=== PATIENT | male | born 1955 | race Caucasian/White ===

== ENCOUNTER → 2017-11-22 | Outpatient (CLI) | payer BC ==
[~2017-11-22] MED LIST: DULO60CA PO; GABA600T PO; LORA1TAB12 PO; OMEP20CA74 PO; OXYC10TA44 PO; TRAZ100T2 PO
[2017-11-22 07:39] LABS: Basophils # (auto) 0.1 uL; Basophils % (auto) 2.1 % (0.0-2.0); Eosinophils # (auto) 0.2 uL; Eosinophils % (auto) 4.1 % (0.0-7.0); Hematocrit 40.7 % (41.0-53.0); Hemoglobin 13.2 g/dL (13.5-17.5); Lymphocytes # (auto) 2.7 uL; Lymphocytes % (auto) 48.4 % (10.0-50.0); Mean Corpuscular Hemoglobin 30.9 pg (28.0-32.0); Mean Corpuscular Hgb Conc. 32.5 g/dL (32.0-36.0); Mean Corpuscular Volume 95.3 fL (80.0-100.0); Monocytes # (auto) 0.3 uL; Monocytes % (auto) 5.1 % (0.0-12.0); Neutrophils # (auto) 2.3 uL; Neutrophils % (auto) 40.3 % (37.0-80.0); Platelet Count (auto) 237 10^3/uL (140-450); Red Blood Cells 4.27 10^6/uL (4.5-5.90); Red Cell Distribution Width 14.9 % (11.8-14.3); White Blood Cell 5.6 10^3/uL (4.4-10.8)
[2017-11-22 07:42] LABS: Urine Bacteria NONE SEEN /hpf (None Seen); Urine Blood Negative /uL (Negative); Urine Specific Gravity 1.023 (1.001-1.035); Urine WBC 1 /hpf (0 - 3)
[2017-11-22 07:59] LABS: Albumin 3.4 g/dL (3.4-5.0); Bilirubin, Total 0.3 mg/dL (0.2-1.0); Calcium 7.8 mg/dL (8.5-10.1); Potassium 4.3 mmol/L (3.5-5.1); Total Protein 6.9 g/dL (6.4-8.2)
[2017-11-22 11:02] LABS: Prostate Specific Antigen 0.76 ng/mL (0.0-4.0)
== END | disposition home or self-care (01) ==
LOC: LAB 07:04
PROVIDERS: ATTEND Family Medicine
DX: K21.9 Gastro-esophageal reflux disease without esophagitis (principal); F51.01 Primary insomnia; F41.8 Other specified anxiety disorders; M48.061 Spinal stenosis, lumbar region without neurogenic claudication; Z89.511 Acquired absence of right leg below knee; Z98.890 Other specified postprocedural states
CPT/HCPCS: 36415; 80053; 80061; 81001; 82306; 82607; 83036; 84153; 84443; 85025

== ENCOUNTER → 2018-12-29 | Outpatient (CLI) | payer BC ==
[2018-12-29 11:06] LABS: Basophils # (auto) 0.1 uL; Basophils % (auto) 0.8 % (0.0-2.0); Eosinophils # (auto) 0.1 uL; Eosinophils % (auto) 1.4 % (0.0-7.0); Hematocrit 35.5 % (41.0-53.0); Hemoglobin 11.5 g/dL (13.5-17.5); Lymphocytes # (auto) 1.3 uL; Lymphocytes % (auto) 15.6 % (10.0-50.0); Mean Corpuscular Hemoglobin 29.4 pg (28.0-32.0); Mean Corpuscular Hgb Conc. 32.3 g/dL (32.0-36.0); Mean Corpuscular Volume 90.9 fL (80.0-100.0); Monocytes # (auto) 0.6 uL; Monocytes % (auto) 7.5 % (0.0-12.0); Neutrophils # (auto) 6.3 uL; Neutrophils % (auto) 74.7 % (37.0-80.0); Platelet Count (auto) 200 10^3/uL (140-450); Red Cell Distribution Width 13.8 % (11.8-14.3); White Blood Cell 8.4 10^3/uL (4.4-10.8)
[2018-12-29 11:08] LABS: Urine Bacteria NONE SEEN /hpf (None Seen); Urine Blood Negative /uL (Negative); Urine Specific Gravity 1.014 (1.001-1.035); Urine WBC <1 /hpf (0 - 3)
[2018-12-29 13:07] LABS: Potassium 4.6 mmol/L (3.5-5.1)
[2018-12-29 13:37] LABS: Albumin 3.3 g/dL (3.4-5.0); BUN/Creatinine Ratio 12.9; Bilirubin, Total 0.4 mg/dL (0.2-1.0); Calcium 7.3 mg/dL (8.5-10.1); Total Protein 6.8 g/dL (6.4-8.2)
== END | disposition home or self-care (01) ==
LOC: LAB 10:30
PROVIDERS: ATTEND Family Medicine
DX: K21.9 Gastro-esophageal reflux disease without esophagitis (principal); F51.5 Nightmare disorder; M54.9 Dorsalgia, unspecified
CPT/HCPCS: 36415; 80053; 80061; 81001; 82607; 83036; 84443; 85025

== ENCOUNTER 2019-04-08 09:00 | Emergency (ER) | payer BC ==
[~2019-04-08] VITALS: Ht 190.5 cm; Wt 105.7 kg
--- NOTE | 2019-04-08 11:54 | NUR ---
PICC line placement Patient educated on need for PICC line placement. All risks and benefits explained and all questions and concerns addressed prior to procedure. Noted past medical history and allergies with no contraindications. INR and Plt counts within acceptable range. 4fr PICC line inserted via RIGHT BRACHIAL vein using [employer] US and Tip Location System. Sterile technique with maximum barrier precautions utilized. Blood return obtained from SINGLE lumen and flushed easily with NS using proper technique. PICC secured with Stat-lock; biodisc and occlusive dressing applied. Stat portable chest x-ray obtained for PICC tip placement. *Baseline Arm Circumference 28CM. PICC lot #[id number] INTERNAL LENGTH 45CM EXTERNAL LENGTH 0CM.
[2019-04-08] MEDS ORDERED: LIDOCAINE 1% (LOCAL ANESTH.) PF 5ml SDV ID ONE (12:00)
[2019-04-08 12:50] VITALS: BP 156/105
[2019-04-08] MEDS ORDERED: SODIUM CHLOR 0.9% PF (SALINE LOCK) 10ML VIAL/SYR IV SCH (22:00)
== END 2019-04-08 13:19 | disposition home or self-care (01) ==
LOC: ER 09:04
DX: M86.8X7 Other osteomyelitis, ankle and foot (principal); E11.9 Type 2 diabetes mellitus without complications; Z89.512 Acquired absence of left leg below knee; Z88.1 Allergy status to other antibiotic agents
CPT/HCPCS: 36569; 71045; 99284; C1751; J7050

== ENCOUNTER 2020-05-04 18:00 | Emergency (ER) | payer BC, MEDICARE, OTHER ==
[~2020-05-04] VITALS: Ht 190.5 cm; Wt 102.1 kg
[~2020-05-04 18:00] MED LIST changes: -GABA600T PO; +GABA800T97 PO; -TRAZ100T2 PO; +TRAZ100T3 PO
[2020-05-04 19:46] LABS: Basophils # (auto) 0 10 ^3/uL (0-0.2); Basophils % (auto) 0.2 % (0.0-2.0); Eosinophils # (auto) 0 10 ^3/uL (0-0.8); Hematocrit 45.5 % (41.0-53.0); Hemoglobin 14.4 g/dL (13.5-17.5); Lymphocytes # (auto) 0.5 10 ^3/uL (0.4-5.4); Lymphocytes % (auto) 5.1 % (10.0-50.0); Mean Corpuscular Hgb Conc. 31.5 g/dL (32.0-36.0); Monocytes # (auto) 0.4 10 ^3/uL (0-1.3); Monocytes % (auto) 3.9 % (0.0-12.0); Neutrophils # (auto) 9.2 10 ^3/uL (1.6-8.6); Neutrophils % (auto) 90.8 % (37.0-80.0); Platelet Count (auto) 318 10^3/uL (140-450); Red Blood Cells 4.79 10^6/uL (4.5-5.90); Red Cell Distribution Width 15.6 % (11.8-14.3); White Blood Cell 10.1 10^3/uL (4.4-10.8)
[2020-05-04 20:06] LABS: Calcium 8.6 mg/dL (8.5-10.1); Potassium 3.7 mmol/L (3.5-5.1)
[2020-05-04 20:12] LABS: Bilirubin, Total 0.5 mg/dL (0.2-1.0)
[2020-05-04 20:37] LABS: Lactic Acid w/Reflex 2.7 mmol/L (0.4-2.0)
[2020-05-04] MEDS ORDERED: ONDANSETRON HCL 4 MG/2 ML VIAL IV ONE (21:00)
[2020-05-04] MEDS ORDERED: PIPERACILLIN-TAZOB 3.375GM 100 ML IV ONE (21:00)
[2020-05-04] MEDS ORDERED: MORPHINE SULFATE 4 MG/ML SYR/VIAL IV ONE (21:00)
[2020-05-04] MEDS ORDERED: SODIUM CHLORIDE 0.9% 3,050 ML IV ONE (21:15)
[2020-05-05] MEDS ORDERED: ONDANSETRON HCL 4 MG/2 ML VIAL IV ONE (01:00)
[2020-05-05] MEDS ORDERED: MORPHINE SULFATE 4 MG/ML SYR/VIAL IV ONE ×2 (01:00→03:30)
[2020-05-05 03:20] VITALS: BP 124/79
[2020-05-05] MEDS ORDERED: MORPHINE SULFATE 4 MG/ML SYR/VIAL ONE (03:26)
== END 2020-05-05 03:30 | disposition short-term general hospital (02) ==
LOC: ER 18:00 → EDBD 18:00 → EDUNIT# 18:00 → ER 05-05 03:30
DX: K80.10 Calculus of gallbladder with chronic cholecystitis without obstruction (principal); M25.512 Pain in left shoulder; G89.29 Other chronic pain; K63.1 Perforation of intestine (nontraumatic); Z98.84 Bariatric surgery status; I10 Essential (primary) hypertension
CPT/HCPCS: 36415; 73200; 74176; 76705; 80053; 82150; 83605; 83690; 85025; 87040; 93005; 96365; 96366; 96375; 96376; 99284; J2270; J2405; J2543; J7030

== ENCOUNTER 2021-06-22 20:16 | Emergency (ER) | payer OTHER ==
[~2021-06-22] VITALS: Ht 190.5 cm; Wt 96.2 kg
[~2021-06-22 20:16] MED LIST changes: -LORA1TAB12 PO; +LORA1TAB23 PO
[2021-06-22 22:19] LABS: Basophils # (auto) 0.1 10 ^3/uL (0-0.2); Basophils % (auto) 0.7 % (0.0-2.0); Eosinophils # (auto) 0.1 10 ^3/uL (0-0.8); Eosinophils % (auto) 1.6 % (0.0-7.0); Hematocrit 33.3 % (41.0-53.0); Hemoglobin 10.8 g/dL (13.5-17.5); Lymphocytes # (auto) 1.2 10 ^3/uL (0.4-5.4); Lymphocytes % (auto) 14.6 % (10.0-50.0); Mean Corpuscular Hgb Conc. 32.4 g/dL (32.0-36.0); Mean Corpuscular Volume 92.5 fL (80.0-100.0); Monocytes # (auto) 0.7 10 ^3/uL (0-1.3); Monocytes % (auto) 8.4 % (0.0-12.0); Neutrophils # (auto) 5.9 10 ^3/uL (1.6-8.6); Neutrophils % (auto) 74.7 % (37.0-80.0); Red Blood Cells 3.61 10^6/uL (4.5-5.90); Red Cell Distribution Width 16.4 % (11.8-14.3); White Blood Cell 7.9 10^3/uL (4.4-10.8)
[2021-06-22 22:38] LABS: Albumin 2.5 g/dL (3.4-5.0); BUN/Creatinine Ratio 18.9; Calcium 7.8 mg/dL (8.5-10.1); Potassium 4.4 mmol/L (3.5-5.1)
[2021-06-22 22:40] LABS: Bilirubin, Total 0.3 mg/dL (0.2-1.0); Total Protein 6.5 g/dL (6.4-8.2)
[2021-06-23 02:29] LABS: INR 0.97 (0.9-1.15)
[2021-06-23 02:35] LABS: Magnesium 2.4 mg/dL (1.6-2.6)
[2021-06-23 02:44] LABS: CRP High Sensitivity 10.7 mg/dL (< 0.3)
[2021-06-23] MEDS ORDERED: NAPROXEN 500 MG TAB PO ONE (04:15)
[2021-06-23] MEDS ORDERED: GABAPENTIN 400 MG CAP PO ONE (04:15)
[2021-06-23] MEDS ORDERED: ACET-1304 PO (04:38)
[2021-06-23] MEDS ORDERED: DULO1CAP5 PO (04:38)
[2021-06-23] MEDS ORDERED: NAP500T PO (04:38)
[2021-06-23] MEDS ORDERED: PIPERACILLIN-TAZO 4.5GM 100 ML IV ONE (05:00)
[2021-06-23] MEDS ORDERED: ACETAMINOPHEN 500 MG TAB PO ONE ×2 (06:30)
[2021-06-23 09:37] VITALS: BP 147/94
[2021-06-23] MEDS ORDERED: LINEZOLID 600MG/300ML 300 ML IV SCH (10:00)
== END 2021-06-23 10:11 | disposition home or self-care (01) ==
LOC: ER 20:24
DX: L03.115 Cellulitis of right lower limb (principal); T87.43 Infection of amputation stump, right lower extremity
CPT/HCPCS: 36415; 73700; 80053; 80329; 83605; 83735; 85025; 85610; 85652; 86141; 87205; 96365; 96366; 96368; 99284; J2020; J2543

== ENCOUNTER 2021-08-25 15:58 | Emergency (ER) | payer OTHER ==
[~2021-08-25] VITALS: Ht 190.5 cm; Wt 91.6 kg
[~2021-08-25 15:58] MED LIST changes: +ACET-1304 PO; +DULO1CAP5 PO; +NAP500T PO
[2021-08-25] MEDS ORDERED: PIPERACILLIN-TAZOB 3.375GM 100 ML IV ONE (17:00)
[2021-08-25] MEDS ORDERED: SODIUM CHLORIDE 0.9% 1,000 ML IV ONE ×2 (17:00)
[2021-08-25 17:27] LABS: Hematocrit 34.4 % (41.0-53.0); Mean Corpuscular Hemoglobin 28.7 pg (28.0-32.0); Mean Corpuscular Hgb Conc. 32.1 g/dL (32.0-36.0); Mean Corpuscular Volume 89.3 fL (80.0-100.0); Red Blood Cells 3.85 10^6/uL (4.5-5.90); Red Cell Distribution Width 17.3 % (11.8-14.3)
[2021-08-25 17:28] LABS: Basophils % (manual) 0 (0.0-2.0); Blast Cells 0; Eosinophils % (manual) 0 (0-7); Metamyelocytes % 0; Myelocytes % 0; Promyelocytes % 0; Reactive Lymphocytes 0
[2021-08-25 17:50] LABS: Albumin 1.6 g/dL (3.4-5.0); Anion Gap 12 (5-15); BUN/Creatinine Ratio 33.3; Blood Urea Nitrogen 50 mg/dL (7-18); Calcium 8.5 mg/dL (8.5-10.1); Carbon Dioxide 15 mmol/L (21-32); Chloride 114 mmol/L (98-107); GFR African American 60 mL/min; GFR Non-African American 50 mL/min; Glucose 135 mg/dL (74-106); Potassium 3.2 mmol/L (3.5-5.1); Sodium 141 mmol/L (136-145)
[2021-08-25 17:54] LABS: Alanine Aminotransferase 16 U/L (16-61); Alkaline Phosphatase 102 U/L (45-117); Aspartate Aminotransferase 18 U/L (15-37); Bilirubin, Total 0.7 mg/dL (0.2-1.0); Total Protein 6.7 g/dL (6.4-8.2)
[2021-08-25 18:40] LABS: Band Neutrophils % (manual) 2; Lymphocytes % (manual) 6 (10.0-50.0); Monocytes % (manual) 9 (0-12)
[2021-08-25 19:21] LABS: INR 1.05 (0.9-1.15); Partial Thromboplastin Time 37.3 sec (23.6-33.0)
[2021-08-26 03:19] VITALS: BP 109/55
== END 2021-08-26 03:29 | disposition home or self-care (01) ==
LOC: ER 15:58
DX: L03.115 Cellulitis of right lower limb (principal); M86.9 Osteomyelitis, unspecified; E11.9 Type 2 diabetes mellitus without complications; Z88.1 Allergy status to other antibiotic agents; Z79.899 Other long term (current) drug therapy
CPT/HCPCS: 36415; 73700; 80053; 83605; 83880; 84484; 85007; 85027; 85610; 85730; 87040; 96365; 96366; 99284; J2543; J7030